=== PATIENT | male | born 1965 | race Caucasian/White ===

== ENCOUNTER 2017-02-24 13:47 | Emergency (ER) | payer BC ==
[~2017-02-24] VITALS: Ht 177.8 cm; Wt 77.1 kg
--- NOTE | 2017-02-24 13:56 | EKG ---
[address] [address] Test Date: 2017-02-24 Test Time: 13:50:07 Pat Name: DIAN JAMES Department: Room: Gender: M [employer]: LEVY : 1965 Requested By: Latoya WILSON Order Number: [id number] Reading MD: Measurements Intervals [place] Rate: 73 P: 42 IN: 136 QRS: 12 QRSD: 92 T: 48 QT: 348 QTc: 387 Interpretive Statements SINUS RHYTHM LOW LIMB LEAD VOLTAGE NO SPECIFIC ECG ABNORMALITIES RI6.01 Unconfirmed report No previous ECG available for comparison
[2017-02-24] MEDS ORDERED: ASPIRIN 81 MG TAB.CHEW PO ONE (14:00)
--- NOTE | 2017-02-24 14:03 | RAD ---
EXAM: CHEST 1 VIEW History: Chest pain COMPARISON: None available. TECHNIQUE: Single portable radiograph of the chest FINDINGS: The cardiac silhouette is unremarkable. The lungs are clear bilaterally. The costophrenic sulci are clear and well demarcated. IMPRESSION: No radiographic evidence of an acute cardiopulmonary process.
[2017-02-24 14:13] LABS: BASO # 0.1 x10^3/uL (0.0-0.2); BASO % 1 % (0-3); EOS # 0.1 x10^3/uL (0.0-0.7); EOS % 1 % (0-3); HEMATOCRIT 49.1 % (39.0-53.0); LYMPH # 1.7 x10^3/uL (1.0-4.8); LYMPH % 19 % (24-48); MEAN CORPUSCULAR HEMOGLOBIN 31 pg (25-35); MEAN CORPUSCULAR HGB CONC 35 g/dL (31-37); MEAN CORPUSCULAR VOLUME 90 fL (79-100); MONO # 0.7 x10^3/uL (0.0-1.1); MONO % 8 % (0-9); NEUT # 6.4 x10^3uL (1.8-7.7); NEUT % 71 % (31-73); PLATELET COUNT 212 x10^3/uL (140-400); RED BLOOD COUNT 5.47 x10^6/uL (4.30-5.70); RED CELL DISTRIBUTION WIDTH 13.4 % (11.5-14.5)
[2017-02-24 14:18] LABS: CALCIUM 9.2 mg/dL (8.5-10.1); CREATININE 0.8 mg/dL (0.7-1.3); GFR 102.3; MAGNESIUM 1.8 mg/dL (1.8-2.4); POTASSIUM 3.9 mmol/L (3.5-5.1)
[2017-02-24] MEDS ORDERED: IOHEXOL 300 MG/ML 75 ML VIAL. IV ONE (14:45)
--- NOTE | 2017-02-24 15:11 | RAD ---
Examination: CT of the abdomen pelvis without and with IV contrast. History: History of abdominal pain, inguinal pain Comparison: None available Technique: Axial CT images of the abdomen pelvis were performed without and with IV contrast. Coronal and sagittal reformats are performed. PQRS Compliance Statement: One or more of the following individualized dose reduction techniques were utilized for this examination: 1. Automated exposure control 2. Adjustment of the mA and/or kV according to patient size 3. Use of iterative reconstruction technique. Findings: The visualized bibasal lungs are clear. No evidence of free air identified in the abdomen. The visualized liver demonstrates a tiny subcentimeter cystic structures in the left lobe of the liver too small to characterize probably cysts. The visualized spleen, adrenals grossly appears unremarkable. The gallbladder is mildly distended. The stomach is mildly distended. The visualized pancreas grossly appears unremarkable. The small bowel is nondilated. The appendix is normal. Feces and gas noted in the colon. The bilateral kidneys enhance symmetrically. The urinary bladder is mildly distended. Prior left inguinal hernia surgical repair changes. Mild aortic atherosclerosis. Mild degenerative changes lumbar spine. Impression: 1. No acute intra-abdominal findings.
--- NOTE | 2017-02-24 15:22 | PHYS DOC ---
Past History Past Medical History: Hypertension Past Surgical History: No Surgical History Alcohol Use: None Drug Use: Marijuana Adult General Chief Complaint Chief Complaint: CHEST PAIN HPI HPI Patient is a 52-year-old male with a past medical history significant for smoking as well as multiple hernia surgeries presents today with chief complaint of chest pain as well as low abdominal pain. The low abdominal pain component has been going on for approximately a week off and on with the patient describing back pain that radiates to the inguinal area and testicle of the left side, he denies any swelling of the testicle or trauma. Patient has not noticed any signs of a new hernia, he also denies any penile discharge or changes in urination. The chest scar for began this morning approximately 11:00 when he started feeling dizzy and lightheaded he proceeded to check his blood pressure was elevated but then he came down on its own, patient denies any nausea, vomiting, shortness of air. Review of Systems Review of Systems Constitutional: Denies fever or chills [] Eyes: Denies change in visual acuity, redness, or eye pain [] HENT: Denies nasal congestion or sore throat [] Respiratory: Denies cough or shortness of breath [] Cardiovascular: No additional information not addressed in HPI [] GI: Denies abdominal pain, nausea, vomiting, bloody stools or diarrhea [] : Denies dysuria or hematuria [] Musculoskeletal: Denies back pain or joint pain [] Integument: Denies rash or skin lesions [] Neurologic: Denies headache, focal weakness or sensory changes [] Endocrine: Denies polyuria or polydipsia [] All other systems were reviewed and found to be within normal limits, except as documented in this note. Current Medications Current Medications Current Medications Medications (Trade) Dose Ordered Sig/Clare Start Time Stop Time Status Last Admin Dose Admin Aspirin (Children'S Aspirin) 324 mg 1X ONCE 02/24/17 14:00 02/24/17 14:01 DC 02/24/17 14:34 243 MG Iohexol (Omnipaque 300 Mg/ml) 75 ml 1X ONCE 02/24/17 14:45 02/24/17 14:46 DC Allergies Allergies Allergies Coded Allergies Type Severity Reaction Last Updated Verified No Known Drug Allergies 02/24/17 No Physical Exam Physical Exam Constitutional: Well developed, well nourished, no acute distress, non-toxic appearance. [] HENT: Normocephalic, atraumatic, bilateral external ears normal, oropharynx moist, no oral exudates, nose normal. [] Eyes: EOMI, conjunctiva normal, no discharge. [] Neck: Normal range of motion, no tenderness, supple, no stridor. No JVD, no LAD , no meningeal signs Cardiovascular:Heart rate regular rhythm, no murmur, equal pulses,, normal perfusion Lungs & Thorax: Bilateral breath sounds clear to auscultation, no tachypnea Abdomen: Bowel sounds normal, soft, , no masses, no pulsatile masses. Mild tenderness to palpation in the left inguinal area, no obvious sign of herniation : No signs of testicular torsion or epididymal torsion. No lesions or discharge. Skin: Warm, dry, no erythema, no rash. [] Back: , no CVA tenderness. Mild tenderness at left lower back, mild tenderness at the sciatic notch. Extremities: No tenderness, no cyanosis, ROM intact, no edema. [] Neurologic: Alert and oriented X 3, normal motor function, no focal deficits noted. [] Psychologic: Affect normal, judgement normal, mood normal. [] Current Patient Data Vital Signs Vital Signs Date Time Temp Pulse Resp B/P (MAP) Pulse Ox O2 Delivery O2 Flow Rate FiO2 02/24/17 14:22 75 18 132/89 (103) 100 Room Air 02/24/17 13:47 98.6 Lab Results Laboratory Tests Test 02/24/17 13:52 White Blood Count 9.0 x10^3/uL (4.0-11.0) Red Blood Count 5.47 x10^6/uL (4.30-5.70) Hemoglobin 17.0 g/dL (13.0-17.5) Hematocrit 49.1 % (39.0-53.0) Mean Corpuscular Volume 90 fL (79-100) Mean Corpuscular Hemoglobin 31 pg (25-35) Mean Corpuscular Hemoglobin Concent 35 g/dL (31-37) Red Cell Distribution Width 13.4 % (11.5-14.5) Platelet Count 212 x10^3/uL (140-400) Neutrophils (%) (Auto) 71 % (31-73) Lymphocytes (%) (Auto) 19 % (24-48) L Monocytes (%) (Auto) 8 % (0-9) Eosinophils (%) (Auto) 1 % (0-3) Basophils (%) (Auto) 1 % (0-3) Neutrophils # (Auto) 6.4 x10^3uL (1.8-7.7) Lymphocytes # (Auto) 1.7 x10^3/uL (1.0-4.8) Monocytes # (Auto) 0.7 x10^3/uL (0.0-1.1) Eosinophils # (Auto) 0.1 x10^3/uL (0.0-0.7) Basophils # (Auto) 0.1 x10^3/uL (0.0-0.2) Sodium Level 144 mmol/L (136-145) Potassium Level 3.9 mmol/L (3.5-5.1) Chloride Level 107 mmol/L (98-107) Carbon Dioxide Level 29 mmol/L (21-32) Anion Gap 8 (6-14) Blood Urea Nitrogen 8 mg/dL (8-26) Creatinine 0.8 mg/dL (0.7-1.3) Estimated GFR (Cockcroft-Gault) 102.3 Glucose Level 107 mg/dL (70-99) H Calcium Level 9.2 mg/dL (8.5-10.1) Magnesium Level 1.8 mg/dL (1.8-2.4) Troponin I Quantitative < 0.017 ng/mL (0-0.055) EKG EKG 1352 SR, 73, no stemi[] Radiology/Procedures Radiology/Procedures [] Course & Med Decision Making Course & Med Decision Making Pertinent Labs and Imaging studies reviewed. (See chart for details) 1640 patient pain well controlled, declines pain medication in the ED. Patient agrees to follow-up as directed with his PCP for recheck. Patient has been made aware for results of labs as well as imaging. []copies of imaging result given to pt to discuss with his pcp Mane Disclaimer Mane Disclaimer This electronic medical record was generated, in whole or in part, using a voice recognition dictation system. Departure Departure: Impression: Primary Impression: Hydrocele in adult Additional Impressions: Low back pain Nonspecific chest pain Disposition: 01 HOME, SELF-CARE Condition: STABLE Referrals: PCP,NO (PCP) Please follow with your PCP or at one of the clinics in the list provided to you for recheck and reevaluation in 2 days Patient Instructions: Back Pain, Adult, Chest Pain (Nonspecific), Hydrocele, Scripts Cyclobenzaprine Hcl (CYCLOBENZAPRINE HCL) 5 Mg Tablet 1 TAB PO TID for 5 Days, #15 TAB Prov: Latoya WILSON MD 02/24/17 Naproxen (NAPROXEN) 375 Mg Tablet 1 TAB PO BID for 7 Days, #14 TAB 0 Refills Prov: Latoya WILSON MD 02/24/17 Problem Qualifiers Latoya WILSON MD Feb 24, 2017 15:22
--- NOTE | 2017-02-24 16:04 | RAD ---
Examination: Ultrasound testis History: History of left-sided testicular pain Comparison: None available Findings: The right testis measures 4.9 x 3.6 x 2.8 cm. The left testis measures 4.5 x 3.4 x 2.5 cm. Blood flow identified in the right and left testis. Small 3 mm cyst identified in the right epididymis. Small bilateral hydroceles. Impression: 1. Small bilateral hydroceles. 2. Tiny 3 mm right epididymal cyst.
[2017-02-24 16:11] VITALS: BP 137/74
[2017-02-24] MEDS ORDERED: CYCL5TAB PO (16:50)
[2017-02-24] MEDS ORDERED: NAPR-695 PO (16:50)
== END 2017-02-24 17:00 | disposition home or self-care (01) ==
LOC: ER 13:47
DX: R07.89 Other chest pain (principal); N43.3 Hydrocele, unspecified; M54.5 Low back pain; I10 Essential (primary) hypertension; F12.10 Cannabis abuse, uncomplicated
CPT/HCPCS: 36415; 71010; 74178; 76870; 80048; 83735; 84484; 85025; 93005; 99285; Q9967